=== PATIENT | male | born 1995 | race Caucasian/White ===

== ENCOUNTER → 2024-03-21 12:24 | Outpatient (CLI) | payer OTHER, SELFPAY ==
--- NOTE | 2024-03-21 | DI.MRI.S_ITS ---
PROCEDURE: MR SHOULDER RT W CON INDICATIONS: right shoulder pain TECHNIQUE: After the administration of 12 mL of dilute intra-articular Gadolinium contrast, oblique coronal T1 and T2 spin echo with fat saturation, oblique sagittal T1 spin echo with and without fat saturation, oblique sagittal T2 fast spin echo with fat saturation, axial T1 spin echo with fat saturation through the shoulder. COMPARISON: None. FINDINGS: Image quality: Excellent. Rotator cuff: The supraspinatus, infraspinatus, and subscapularis tendons appear intact throughout. No rotator cuff muscle atrophy on sagittal images. Bones and bursae: No bone marrow contusions or fractures. Mild subchondral marrow edema adjacent to the acromioclavicular interval. Mild acromioclavicular joint degeneration. The acromion demonstrates conventional anatomy, without an os acromiale. Capsule and soft tissues: Linear high signal intensity traverses the mid inferior labrum on the fat saturated sequences (series 7 images 10-11). The long head of the biceps tendon demonstrates normal location and morphology. The rotator interval appears normal, without fibrosis. The coracohumeral ligament is of normal thickness. No intra-articular bodies. IMPRESSION: 1. Inferior labral tearing. 2. Mild acromioclavicular joint osteoarthritis. Dictated by: Josh Galvan M.D. on 03/21/2024 at 16:15 Approved by: Josh Galvan M.D. on 03/21/2024 at 16:23
--- NOTE | 2024-03-21 | DI.RAD.S_ITS ---
PROCEDURE: FL SHOULDER INJECTION MR/CT RT INDICATIONS: right shoulder pain COMPARISON: [facility], MR, MR SHOULDER RT W CON, 03/21/2024, 13:46. TECHNIQUE: The indications, alternatives, benefits, risks, and complications of the procedure were explained to the patient. Written informed consent was obtained and placed in the chart. The shoulder was examined fluoroscopically and a site for needle placement chosen for entry into the glenohumeral joint from an anterior approach. The skin was prepped and draped in a sterile fashion, and 1% lidocaine infiltrated from skin down to joint capsule. A spinal needle was inserted into the glenohumeral joint, and a small amount of iodinated contrast media injected to confirm intra-articular placement of the needle tip. This was followed by approximately 12 mL dilute solution of a gadolinium containing MR contrast agent. The needle was removed and a dressing was applied. The patient was given postprocedural instructions and sent to the MR suite for MR imaging. FINDINGS: A single fluoroscopic spot image demonstrates intra-articular location of injected iodinated contrast. IMPRESSION: Successful fluoroscopically guided administration of dilute Gadolinium solution into the shoulder joint for MR arthrogram. Dictated by: July Martines M.D. on 03/22/2024 at 7:58 Approved by: July Martines M.D. on 03/22/2024 at 7:59
[2024-03-21] MEDS: LIDOCAINE 1% 20 ML INJ (13:44)
[2024-03-21] MEDS: SODIUM CHLORIDE 0.9 % 20 ML VIAL IV (13:44)
== END ==
DX: M19.011 Primary osteoarthritis, right shoulder (principal); S43.491A Other sprain of right shoulder joint, initial encounter; M25.511 Pain in right shoulder
CPT/HCPCS: 23350; 73040; 73222; A9579; Q9967